=== PATIENT | female | born 1945 | race Caucasian/White ===

== ENCOUNTER → 2016-10-12 | Outpatient (CLI) | payer OTHER ==
--- NOTE | 2016-10-12 12:39 | MAMMOGRAPHY REPORT ---
BILATERAL DIGITAL SCREENING MAMMOGRAM WITH CAD: 10/12/2016 TECHNIQUE: Current study was also evaluated with a Computer Aided Detection (CAD) system. Bilatera l CC and MLO views were obtained. COMPARISON: Comparison is made to exams dated: 11/26/2013 mammogram, 06/29/2011 mammogram, 04/06/2010 mammogram - [facility], and 03/24/2009. BREAST COMPOSITION: There are scattered areas of fibroglandular density in both breasts. FINDINGS: No suspicious masses, calcifications, or areas of architectural distortion are noted in e ither breast. There has been no significant interval change compared to prior exams. Bilateral bayron gn-appearing calcifications are again noted. IMPRESSION: ACR BI-RADS CATEGORY 2: BENIGN There is no mammographic evidence of malignancy. A 1 year screening mammogram is recommended. The p atient will receive written notification of the results. Approximately 10% of breast cancers are not detected with mammography. A negative mammographic repor t should not delay biopsy if a clinically suggestive mass is present. Vanesas Mayfield M.D. ah/:10/12/2016 12:21:27 Locator: Damaris WEAVER)(Ann-Marie), [facility] letter sent: Normal 1/2 BI-RADS Code: ACR BI-RADS Category 2: Benign
== END | disposition home or self-care (01) ==
LOC: C.MAMM 09:48
PROVIDERS: ATTEND Family Medicine
DX: Z12.31 Encounter for screening mammogram for malignant neoplasm of breast (principal)

== ENCOUNTER → 2017-10-23 | Outpatient (CLI) | payer OTHER | END | disposition home or self-care (01) | LOC: C.LABMFLN 11:43 | PROVIDERS: ATTEND Family Medicine | DX: E87.6 Hypokalemia (principal) ==

== ENCOUNTER 2020-12-28 06:47 | Observation (INO) ==
--- NOTE | 2020-05-26 09:32 | Anesthesiology Consultation ---
Date of Service May 26, 2020 Assessment & Plan (1) Encounter for pre-operative examination: - Per assessment on 05/19: Travel screen negative. No known COVID-19 positive contacts or current COVID-19 related symptoms. Surgeon arranging preop COVID t esting (scheduled 05/27 [facility]). Awaiting results. - PCP ([facility]): Per PCP workload note from 03/19/20, PCP is aware of upcoming orthopedic surgery. Reviewed preop EKG and recommended that patient be seen by cardiology prior to surgery for clearance. This was done 05/11/20. Surgery was originally scheduled for 04/2020 but it was canceled given A1C greater than 10%. She has been working closely with PCP and has had insulin dosing increased. Repeat A1C done 05/20/20 with A1C less than 10% (9.6%). Per Lauryn at Dr. Sood's office, most recent hgba1c reviewed and okay from his perspective to proceed with surgery as scheduled. - Cardiology office visit: 05/11/20: " She had a preop EKG that demonstrated atrial bigeminy. She is asymptomatic.. At this point time she has no cardiac issues.. Her EKG that demonstrates atrial bigeminy is a benign finding. From a cardiac standpoint I see no cardiac contraindication for her having orthopedic surgery." - Check BSG AM DOS Chart Review Chart Review: Acceptable Risk for Surgery and Patient NOT seen in Pre Admission Testing History Surgery Operation Date: 06/02/20 07:00 Proposed Procedures p Left Total Hip Replacement - Chin Sood MD Operation Date: 06/02/20 07:00 Proposed Procedures p Left Total Hip Arthroplasty - Chin Sood MD Height/Weight Height: 5 ft 2 in Weight: 86.636 kg Allergies Allergy/AdvReac Type Severity Reaction Status Date / Time No Known Drug Allergies Allergy Verified 05/19/20 16:42 Medications Home Medications Medication Instructions Recorded Confirmed Last Taken blood sugar diagnostic #400 ea 09/30/19 03/03/20 Unknown glimepiride 4 mg tablet 4 mg PO BID #180 tab 12/06/19 05/19/20 Unknown hydroxyzine HCl 10 mg tablet 10 mg PO HS PRN #30 tab 02/18/20 05/19/20 Unknown pen needle, diabetic 31 gauge x #100 ea 02/18/20 03/03/20 Unknown 12/20" 3-in-1 Commode #1 ea 02/27/20 03/03/20 Unknown Wheeled Walker #1 ea 02/27/20 03/03/20 Unknown atorvastatin 80 mg PO HS 03/02/20 05/19/20 Unknown losartan 100 mg PO QAM 03/02/20 05/19/20 Unknown meloxicam [Mobic] 7.5 mg PO QAM 03/02/20 05/19/20 Unknown paroxetine HCl 10 mg PO QAM 03/02/20 05/19/20 Unknown hydrocortisone [Anusol-HC] 0.5 applic DC BID PRN 05/19/20 05/19/20 Unknown insulin glargine [Lantus Solostar 47 units SQ HS 05/19/20 05/19/20 Unknown U-100 Insulin] nystatin 1 applic TOPICAL HS PRN 05/19/20 05/19/20 Unknown pioglitazone [Actos] 30 mg PO QAM 05/19/20 05/19/20 Unknown Past Medical History Medical History Anxiety Depression Diabetes mellitus, type 2 IDDM HTN (hypertension) Hyperlipidemia Obesity Osteoarthritis Right patella fracture Past Family History Family History Family/Other No problems noted. Father Myocardial infarction Other No family history of adverse response to anesthesia Denies family history of Ovarian cancer Prostate cancer Breast cancer Lung cancer Colorectal cancer Stroke Past Surgical History Surgical History History of bilateral tubal ligation History of open reduction and internal fixation (ORIF) procedure Right Elbow History of tonsillectomy and adenoidectomy Social History Smoking Status: Never smoker Do You Dip or Chew Tobacco: No Hx Alcohol Use: No Hx Substance Use: No substance use type: does not use Testing Laboratory Results 05/05/20 WBC 4.11 (labs ordered/reviewed by PCP) H/H 12.9/40.8 PLATELETS 250 SODIUM 142 POTASSIUM 5.0 CHLORIDE 102 CO2 24 BUN 22 CREATININE 0.9 GLUCOSE 142 PT 12.2 PTT 24.6 INR 0.9 05/25/20 HGBA1C 9.6% (surgeon's office aware) Electrocardiogram Date: 08/04/20 SR with PACs in pattern of bigeminy. Otherwise "normal" ECG. Chest X-Ray Date: 03/10/20 The heart is borderline enlarged. There is no failure. There is no lobar consolidation. There are no pleural effusions. IMPRESSION: No active disease in the chest.
--- NOTE | 2020-10-14 13:43 | PAT Medication Instructions ---
Medication Instructions Date of Service October 14, 2020 Home Medications Medication Instructions Recorded glimepiride 4 mg tablet 4 mg PO BID #180 tab 12/06/19 hydroxyzine HCl 10 mg tablet 10 mg PO HS PRN #30 tab 02/18/20 pen needle, diabetic 31 gauge x #100 ea 02/18/2012/20" 3-in-1 Commode #1 ea 02/27/20 Wheeled Walker #1 ea 02/27/20 losartan 100 mg tablet 100 mg PO QAM #90 tab 06/01/20 paroxetine HCl 10 mg tablet 10 mg PO QAM #30 tab 08/19/20 blood sugar diagnostic #400 ea 10/07/20 insulin glargine 100 unit/mL (3 50 unit SQ HS #15 ml 10/12/20 mL) subcutaneous pen meloxicam 7.5 mg tablet 7.5 mg PO QAM #90 tab 10/12/20 glimepiride 4 mg tablet 4 mg PO BID hydroxyzine HCl 10 mg tablet 10 mg PO HS PRN atorvastatin 80 mg PO HS hydrocortisone [Anusol-HC] 0.5 applic NE BID PRN nystatin 1 applic TOPICAL HS PRN pioglitazone [Actos] 30 mg PO QAM losartan 100 mg tablet 100 mg PO QAM paroxetine HCl 10 mg tablet 10 mg PO QAM insulin glargine 100 unit/mL (3 mL) subcutaneous pen 50 unit SQ HS meloxicam 7.5 mg tablet 7.5 mg PO QAM ASK your surgeon for instructions meloxicam 7.5 mg tablet 7.5 mg PO QAM DO NOT take the morning of surgery glimepiride 4 mg tablet 4 mg PO BID pioglitazone [Actos] 30 mg PO QAM losartan 100 mg tablet 100 mg PO QAM Take morning of surgery With a small sip of water, OTHERWISE NOTHING TO EAT OR DRINK AFTER MIDNIGHT: paroxetine HCl 10 mg tablet 10 mg PO QAM Take evening before surgery glimepiride 4 mg tablet 4 mg PO BID hydroxyzine HCl 10 mg tablet 10 mg PO HS PRN (if needed) atorvastatin 80 mg PO HS hydrocortisone [Anusol-HC] 0.5 applic NE BID PRN (if needed) nystatin 1 applic TOPICAL HS PRN (if needed) insulin glargine 100 unit/mL (3 mL) subcutaneous pen 50 unit SQ HS Other Notes If you have any questions please call us at [phone] or [phone] or [phone] or [phone]
--- NOTE | 2020-10-19 11:04 | Anesthesiology Consultation ---
Date of Service October 19, 2020 Assessment & Plan (1) Encounter for pre-operative examination: Case was originally to be done last fall, but was canceled multiple times until now (first for uncontrolled DM (A1C 10.8%), then due to COVID pandemic restricting elective surgeries). COVID Status: As of 10/19 assessment, patient denies travel to endemic area, known exposure/sick contacts, or symptoms of COVID19. Patient instructed that they and their household members must follow strict social distancing guidelines, wear a mask in public and avoid travel/events/gatherings for 14 days prior to surgery. Preoperative COVID19 testing to be completed prior to surgery per surgeon's arrangements (11/13). Patient made aware to self-isolate as much as possible between COVID testing and surgery. Cardiology clearance 05/11/2020: "At this point in time she has no cardiac issues. She has never had a myocardial infarction and is asymptomatic from a ca rdiac standpoint. Her EKG did demonstrate atrial bigeminy is a benign finding. From a cardiac standpoint I see no contraindication for her having orthopedic surgery." K+ mildly elevated at 5.2 on pre-op labs. She is on ARB, which will be held DOS. Recheck AM DOS at [facility] discretion. BSG AM DOS. Chart Review Chart Review: Acceptable Risk for Surgery and Patient seen in Pre Admission Testing Teaching & Discussion Instructed NPO after midnight before surgery, except medications with 15 cc of water. Medication instructions provided according to the PAT guidelines. History Surgery Operation Date: 06/02/20 07:00 Proposed Procedures p Left Total Hip Replacement - Chin Sood MD Operation Date: 11/18/20 07:15 Proposed Procedures p Left Total Hip Arthroplasty - Chin Sood MD Height/Weight Height: 5 ft 2 in Weight: 86.636 kg Allergies Allergy/AdvReac Type Severity Reaction Status Date / Time No Known Drug Allergies Allergy Unknown Verified 10/12/20 11:37 Medications Home Medications Medication Instructions Recorded Confirmed Last Taken glimepiride 4 mg tablet 4 mg PO BID #180 tab 12/06/19 10/15/20 Unknown hydroxyzine HCl 10 mg tablet 10 mg PO HS PRN #30 tab 02/18/20 10/15/20 Unknown pen needle, diabetic 31 gauge x #100 ea 02/18/20 10/12/20 Unknown 5/16" 3-in-1 Commode #1 ea 02/27/20 03/03/20 Unknown Wheeled Walker #1 ea 02/27/20 10/12/20 Unknown atorvastatin 80 mg PO HS 03/02/20 10/15/20 Unknown hydrocortisone [Anusol-HC] 0.5 applic [place] BID PRN 05/19/20 10/15/20 Unknown nystatin 1 applic TOPICAL HS PRN 05/19/20 10/15/20 Unknown pioglitazone [Actos] 30 mg PO QAM 05/19/20 10/15/20 Unknown losartan 100 mg tablet 100 mg PO QAM #90 tab 06/01/20 10/15/20 Unknown paroxetine HCl 10 mg tablet 10 mg PO QAM #30 tab 08/19/20 10/15/20 Unknown blood sugar diagnostic #400 ea 10/07/20 10/12/20 Unknown insulin glargine 100 unit/mL (3 50 unit SQ HS #15 ml 10/12/20 10/15/20 Unknown mL) subcutaneous pen meloxicam 7.5 mg tablet 7.5 mg PO QAM #90 tab 10/12/20 10/15/20 Unknown Past Medical History Medical History (Updated 10/19/20 @ 15:42 by Arsen Noble) Anxiety Depression Diabetes mellitus, type 2 IDDM. Uncontrolled, A1C 9.6%. Surgeon's office aware. GERD (gastroesophageal reflux disease) UNDER CONTROL HTN (hypertension) Hyperlipidemia Obesity Osteoarthritis Right elbow pain Right patella fracture 04/02/20, healed. Exercise / Class Metabolic Activity III < 4 Walking/Shop/Light housework (Denies CP or SOB with ambulation, using cane for stability, limted by hip pain) Past Family History Family History Family/Other No problems noted. Father Myocardial infarction Sister No family history of adverse response to anesthesia SLOW TO WAKE UP Grandmother (Paternal) Family history of diabetes mellitus Denies family history of Ovarian cancer Prostate cancer Breast cancer Lung cancer Colorectal cancer Stroke Past Surgical History Surgical History History of bilateral tubal ligation History of esophagogastroduodenoscopy (EGD) History of open reduction and internal fixation (ORIF) procedure Right Elbow History of tonsillectomy and adenoidectomy Past Anesthesia History No Hx of Anesthesia Complications and No Family Hx of Anesthesia Complications History of PONV No Hx of PONV and No Hx of Motion Sickness Social History Smoking Status: Never smoker Do You Dip or Chew Tobacco: No Hx Alcohol Use: No Hx Substance Use: No substance use type: does not use Review of Systems Pt denies any recent chest pain, shortness of breath, palpitations, cough, fever, URI, or uncontrolled acid reflux (only flares with too much coffee). Physical Exam Vital Signs BP: 101/65 P: 81bpm SPO2: 95% RA T: 97.9 F R: 16 ENMT Mouth: + dentures (full set) Thyromental Distance: < 3.5 Finger Breadths (3) Mallampati Class: II Neck + thick neck and + facial hair; neck extension not limited Respiratory normal respiratory effort, lungs clear to auscultation Auscultation: + diminished lung sounds (B/L) Cardiovascular RRR, no murmur, no edema Vessels: no carotid bruit Testing Laboratory Results 10/19/20 11:21 10/19/20 11:21 PT 10.1 Seconds (9.0-12.0) 10/19/20 11: INR 1.0 (0.9-1.1) 10/19/20 11:21 APTT 23.4 Seconds (21.0-31.0) 10/19/20 11:21 Hemoglobin A1c 9.6 % (4.5-5.6) H 10/19/20 11:21 Blood Type A Positive 10/19/20 11:21 Antibody Screen NEGATIVE 10/19/20 11:21 Surgeon's office flagged re: elevated A1C and glucose. Electrocardiogram Date: 03/10/20 SR with PACs in pattern of bigeminy. Otherwise "normal" ECG. *Patient subsequently seen by cardiology for pre-op clearance. "Benign finding." Chest X-Ray Date: 03/10/20 The heart is borderline enlarged. There is no failure. There is no lobar consolidation. There are no pleural effusions. IMPRESSION: No active disease in the chest.
[2020-10-19 12:14] LABS: Basophils # (auto) 0.02 K/uL (0-0.2); Basophils % (auto) 0.4 %; Eosinophils # (auto) 0.09 K/uL (0-0.5); Eosinophils % (auto) 1.9 %; Hematocrit (blood only) 38.7 % (37-47); Hemoglobin 12.7 g/dL (12.0-16.0); Immature Granulocytes # (auto) 0.02 K/uL (0.00-0.02); Immature Granulocytes % (auto) 0.4 %; Lymphocytes % (auto) 25.2 %; Mean Corpuscular Hemoglobin 32.4 pg (25-34); Mean Corpuscular Hgb Conc 32.8 g/dL (32-36); Mean Corpuscular Volume 98.7 fL (80-100); Mean Platelet Volume 9.4 fL (7.4-10.4); Monocytes # (auto) 0.42 K/uL (0.11-0.59); Monocytes % (auto) 8.8 %; Neutrophils # (auto) 3.02 K/uL (1.4-6.5); Neutrophils % (auto) 63.3 %; Platelet Count 247 K/uL (130-400); RDW Coefficient of Variation 13.8 % (11.5-14.5); RDW Standard Deviation 50.1 fL (36.4-46.3); Red Blood Count 3.92 M/uL (4.2-5.4); White Blood Count 4.77 K/uL (4.8-10.8)
[2020-10-19 12:28] LABS: Partial Thromboplastin Ratio 0.9; Partial Thromboplastin Time 23.4 Seconds (21.0-31.0); Prothrombin Time 10.1 Seconds (9.0-12.0)
[2020-10-19 13:13] LABS: Estimated Average Glucose 229 mg/dl; Hemoglobin A1C 9.6 % (4.5-5.6)
[2020-10-19 14:09] LABS: BUN Creatinine Ratio 22.8 (10-20); Calcium 9.1 mg/dl (8.5-10.1); Creatinine Clr Calc Pharmacy 52.2 ml/min; Est GFR (African American) 66.7; Est GFR (Non-African American) 57.5; Potassium 5.2 mmol/L (3.5-5.1)
--- NOTE | 2020-12-24 23:32 | History and Physical Report ---
DATE OF ADMISSION: 12/28/2020 CHIEF COMPLAINT: Left hip and leg pain. HISTORY OF PRESENT ILLNESS: The patient is a 75-year-old female who presents for surgical treatment of her left hip. She has got a 7-year history of increasing left hip pain and discomfort, it has become more bothersome over time. She has been through extensive conservative treatment, which became less successful over time. She has been scheduled for hip replacement surgery on several occasions. She initially fell shortly before surgery was planned and then broke her kneecap, she has now recovered from this, and then her surgery was canceled due to her elevated hemoglobin A1c. She has been working with her medical doctor trying to get this down. It has improved some, but still pretty high. They feel like she has been medically optimized. She describes groin pain, thigh pain. She limps more as the day goes on. She would like to have her hip fixed. PAST MEDICAL HISTORY: 1. Hypertension. 2. Elevated cholesterol. 3. Sleep apnea. 4. Anxiety. 5. Poorly controlled diabetes. 6. Back pain/sciatica. PAST SURGICAL HISTORY: Include left elbow surgery. ALLERGIES: None. CURRENT MEDICATIONS: Include, 1. Atorvastatin. 2. Vitamin D3. 3. Nystatin. 4. Hydrocortisone topical cream. 5. Insulin. 6. Meloxicam. 7. Simvastatin. 8. Mupirocin cream. 9. Clozapine. 10. Pioglitazone. 11. Triamcinolone cream. SOCIAL HISTORY: A 75-year-old female patient. She is . She does not smoke. No alcohol intake. FAMILY HISTORY: Noncontributory. REVIEW OF SYSTEMS: Elevated hemoglobin A1C. She is working on improving this. Medical doctor feels like she is about as good as she can get. She has chronic back pain. No chest pain, no shortness of breath. No cardiac symptoms. No history of DVT or PE. PHYSICAL EXAMINATION: GENERAL: Shows a pleasant elderly female. She looks to be in reasonably good health. HEENT: Benign. NECK: Supple, no lymphadenopathy. LUNGS: Clear to auscultation. HEART: Has a regular rate and rhythm. ABDOMEN: Soft, nontender, nondistended. EXTREMITIES: Grossly neurovascularly intact except as follows: Examination of the left leg reveals the patient walks with the use of a cane. Leg lengths appear pretty equal. She limps on the left side. She has got a very stiff hip with a very limited internal rotation to neutral at best. Minimal knee effusion. She is neurologically intact. IMAGING DATA: X-rays of the left hip were reviewed from previously. It shows advanced left hip DJD. X-rays have progressed to more progressed and severe arthritis, specifically the acetabulum as well as femoral head. X-rays of the left knee show pretty well preserved knee joint space. Some [id number] chondrocalcinosis. Mild medial compartment degenerative joint disease. ASSESSMENT: A 75-year-old white female with multiple medical comorbidities, most significantly pretty poorly controlled diabetes with advanced left hip arthritis. She would try to medically optimize her situation including her diabetes and she would like to have her right knee fixed. The patellar fracture on the right side is healed. PLAN: We will take her to the operating room and do a left total hip replacement. The risks and benefits of this procedure were explained to the patient including, but not limited to, DVT, PE, , infection, neurological injury, vascular injury, bleeding problem, pain, limited range of motion, stiffness, failure to relieve symptoms, incomplete relief of symptoms, need for further surgery in the future, fracture, leg length inequality, nerve palsy, etc. The patient understands and desires to proceed. Informed consent was obtained. We will use insulin sliding scale coverage in the hospital. She is planning to be discharged home using [facility]. She is fully aware with her poorly controlled diabetes she is at increased risk for infection particularly, but she has been optimized. MTDD
[~2020-12-28 06:47] MED LIST: BUPIVACAINE 0.5 % 5 MG/1 ML PF 10ML VIAL ONE; FAMOTIDINE 20 MG TAB PO SCH; GABAPENTIN 300 MG CAP PO SCH; LR 500ML BOLUS, THEN 15ML/HR IV SCH; LR 60ML/HR IV SCH; METOCLOPRAMIDE HCL 10 MG TABLET PO SCH; Scopolamine 1 MG TDSY TD SCH; Scopolamine CHECK PATCH PLACEMENT SCH; TRANEXAMIC ACID 1,000 MG **IV Pre-op IV SCH; ceFAZolin 2000MG 2,000 MG/15 ML SYR IV SCH
--- NOTE | 2020-12-28 06:56 | History & Physical Bridge Note ---
Date of Service December 28, 2020 History & Physical Bridge Note I have examined the patient, reviewed the History & Physical and in the interval since the performance of the History & Physical I have noted the following changes of clinical significance: no changes noted
[2020-12-28] MEDS ORDERED: MoRPHine SULFATE PF 1 MG/ML 10 ML AMP/VIAL ONE ×2 (08:08→09:45)
[2020-12-28] MEDS ORDERED: MIDAZOLAM HCL 1 MG/ML 2ML VIAL ONE (08:08)
[2020-12-28] MEDS ORDERED: MEPERIDINE HCL 25 MG/ML CARP/VIAL IV PRN (09:04)
[2020-12-28] MEDS ORDERED: ONDANSETRON INJ 2 MG/ML 2 ML VIAL IV PRN (09:04)
[2020-12-28] MEDS ORDERED: diphenhydrAMINE 50 MG/ML VIAL IV PRN (09:04)
[2020-12-28] MEDS ORDERED: LACTATED RINGER'S 500 ML IV PRN (09:04)
[2020-12-28] MEDS ORDERED: PROMETHAZINE HCL 6.25 MG in SODIUM CHLORIDE 0.9% 50 ML IV PRN (09:04)
[2020-12-28] MEDS ORDERED: NALOXONE HCL 0.4 MG/1 ML VIAL/CARP IV PRN ×2 (09:04→13:14)
[2020-12-28] MEDS ORDERED: ePHEDrine sulfate 50 MG/ML AMP IV PRN (09:04)
[2020-12-28] MEDS ORDERED: KETOROLAC 30 MG/ML VIAL IV PRN (09:04)
[2020-12-28] MEDS ORDERED: NALOXONE HCL 1 MG in SODIUM CHLORIDE 0.9% 1000ML 1,000 ML IV PRN (09:04)
[2020-12-28] MEDS ORDERED: NALOXONE HCL 0.08 MG in SYRINGE 1.8 ML IV PRN (09:04)
[2020-12-28] MEDS ORDERED: MoRPHine SULFATE PF 1 MG/ML 10 ML AMP/VIAL INT SPINAL ONE (09:04)
[2020-12-28] MEDS ORDERED: BUPIVACAINE/EPINEPHRINE 0.5% MPF 1:200,000 30 ML VIAL ONE (09:05)
[2020-12-28] MEDS ORDERED: SODIUM CHLORIDE 0.9% 1000ML 1,000 ML IV SCH (09:15)
[2020-12-28] MEDS ORDERED: DC INTRASPINAL MORPHINE SCH (09:15)
[2020-12-28] MEDS ORDERED: NO NARCOTICS OR SEDATIVES SCH (09:15)
[2020-12-28] MEDS ORDERED: LIDOCAINE 2% 2 ML VIAL/AMP(20MG/ML) INFIL ONE (10:01)
[2020-12-28] MEDS ORDERED: PROPOFOL IV EMULSION 10 MG/ML 20 ML VIAL IV ONE (10:01)
--- NOTE | 2020-12-28 11:22 | Operative Report ---
Post Operative Report Pre & Post Diagnosis Operation Date: 06/02/20 07:00 <No data on this case meets the specified criteria> Operation Date: 12/28/20 09:20 Pre-Op Diagnosis: Left Hip Advanced Degenerative Joint Disease Post-Op Diagnosis: Left Hip Advanced Degenerative Joint Disease I identified the patient and participated in the time-out.: Yes Procedure Operation Date: 06/02/20 07:00 <No data on this case meets the specified criteria> Operation Date: 12/28/20 09:20 Actual Procedures p Left Total Hip Arthroplasty--Cemented(Left) - Chin Sood MD Surgeon Chin Sood MD Undercover Agent SHERYL Figueroa Estimated Blood Loss 200 Findings Consistent with Post-Op Diagnosis Operative findings real advanced left hip DJD. She had grade 4 [id number] disease the femoral head and acetabulum. She had collapse of the femoral head with flattening of the femoral head. Moderate-sized joint effusion. Fluids 1300 cc Specimens Left femoral head sent for pathology. Anesthesia Type Spinal Complications none Disposition Accompanied Patient To Recovery: Yes Disposition: Recovery Room Indications Patient is 75-year-old female has had a several year history of increasing left lower extremity hip and knee pain and discomfort and inability to get around. Is gotten significant worse over the past year. X-rays show advanced left hip DJD. She elected proceed with left total hip placement. Patient's been rescheduled multiple times due to various issues including a fall and a right patella fracture as well as the Covid epidemic. She is now desiring more than ever to have this hip replaced as she has been pretty miserable lately. Description of Procedure Operative implants consist of: 1. Biomet G7 size 54 mm acetabular shell. 2. 6.5 cancellous acetabular screws 135 mm length and 1 of 30 mm length. 3. [place] hole development vice president. 4. Highly cross-linked polyethylene liner with a 54 mm outer diameter, 36 mm inner diameter. 5. DePuy cemented [place] size 4 standard offset femoral stem. 6. +5/36 mm metal articular ball. The patient was taken to the operating, identified, placed on the operating table supine position but all contact areas were properly padded IV antibiotics 5 by anesthesia team. A spinal anesthetic had been implemented holding area. Berumen catheter was placed in sterile fashion. Patient then placed in the right lateral decubitus position. An axillary roll was placed. A Stulberg hip positioner was used for positioning. The left hip and leg were then prepped and draped in usual sterile fashion. Posterior lateral posterior left hip was then performed to a curvilinear incision centered over the greater trochanter. Sharp dissection Through subcutaneous tissue down to the IT band gluteal fascia the IT band gluteal fascia incised longitudinally in line with skin incision. The underlying gr eater bursa was excised. The piriformis and external rotators and posterior capsule were then released from the posterior aspect hip joint as a single layer. Great care was taken throughout the procedure protect the sciatic nerve at all times. Hip was internally rotated and dislocated. Femoral neck osteotomy cut was made with Final Cut 15 mm above the lesser trochanter. Femoral head was removed and sent for pathology. The femur was retracted anteriorly. Attention drawn the acetabulum. The acetabular labrum was excised and the pulmonary fat was excised. Sequential reaming the acetabular was then performed begin with size 43 and progressing up to 53. I did reamed a little bit with a 54 reamer and then placed a 54 cup. This is placed in about 40 degrees lateral opening and 20 degrees of anteversion. Was fixed with two 6.5 cancellous acetabular screws. A trial liner was placed. Attention drawn the femur. The proximal femur was entered with a cookie-cutter followed by canal finder. Her bone was extremely cancellous and very soft. Therefore we elected to cement the stem. I broached begin the size well 1 and progressing up to a 4. Got good fit of 4. We then trialed the hip and the +5 articular ball seem to recreate soft tissue tension appropriately and was stable in full extension and external rotation and flexion to 90 degrees and internal rotation over a 50 degrees. Leg lengths seem equal. Offset seemed appropriate. We elect to place these implants. Nupathe all trial implants were removed. An apex hole development vice president was placed. Highly cross-linked polyethylene liner was placed. A DePuy [place] size 4 standard offset cemented stem was placed. We injected the canal with 2 packs of [place] G cement and then placed the stem. All extraneous cement was cameron alexandra. Once the cement hardened we placed a +5/36 mm metal articular ball. Hip was located once again found to be stable. Attention drawn toward closing. The wounds irrigated scopes also pulsatile lavage solution. I did inject locally with 60 cc of half percent Marcaine with epinephrine. Patient did receive 1 g tranexamic acid. The posterior capsule and external rotators were then repaired through drill holes in the posterior trochanter with #2 Tycron suture. The IT band gluteal fascia then closed in 1 PDS suture running fashion for subcutaneous tissue then closed 2 layers with a deep layer #1 Vicryl suture subcutaneous tissues with 2-0 Dexon suture in a buried interrupted fashion the skin was closed skin omer. Leg was then cleaned dried a sterile dressing both Xeroform, 4 x 4's, ABD pad, foam tape were applied. The patient then transferred to the recovery in stable condition. Patient tolerated procedure well and there were no complications. Albert Figueroa, my physician promotional advertising assistant, was present for the entire procedure. His assistance was essential and required for appropriate patient positioning, prepping and draping, surgical exposure, performing the technical details of the operation, placement the implants, closure of the wound, and placement of the sterile bandage. I attest to the content of the Intraoperative Record and any orders documented therein. Any exceptions are noted below.
--- NOTE | 2020-12-28 12:50 | XRay Report ---
AP PELVIS, CROSSTABLE LATERAL LEFT HIP History: Left total hip arthroplasty. Degenerative arthritis. Postop. FINDINGS: The patient is status post a left total hip arthroplasty. The hardware is intact. No fractu re or dislocation. Skin omer are in place. IMPRESSION: Left total hip arthroplasty. No evidence for hardware complication. ACT 112: Negative or not required by law. Electronically signed by: Howard Richard M.D. 12/28/2020 12:49 PM
[2020-12-28] MEDS ORDERED: DEXTROSE 50% 50 ML SYRINGE IV PRN (13:14)
[2020-12-28] MEDS ORDERED: HYDROCORTISONE HC 2.5% CRM 30GM TUBE EXT PRN (13:14)
[2020-12-28] MEDS ORDERED: bisacodyL 10 MG SUPP PR PRN (13:14)
[2020-12-28] MEDS ORDERED: GLUCOSE 40% GEL 15 GM TUBE PO PRN (13:14)
[2020-12-28] MEDS ORDERED: ALUMINUM/MAGNESIUM SUSP 30 ML UDC PO PRN (13:14)
[2020-12-28] MEDS ORDERED: NYSTATIN CR 15 GM TUBE EXT PRN (13:14)
[2020-12-28] MEDS ORDERED: CARBOHYDRATES FOR HYPOGLYCEMIA PO PRN (13:14)
[2020-12-28] MEDS ORDERED: GLUCAGON FOR INJ 1 MG VIAL SQ PRN (13:14)
[2020-12-28] MEDS ORDERED: MAGNESIUM HYDROXIDE SUSP 30 ML UDC PO PRN (13:14)
[2020-12-28] MEDS ORDERED: GLUCOSE 10 TABS/TUBE PO PRN (13:14)
--- NOTE | 2020-12-28 13:17 | Anesthesiology Progress Note ---
Date of Service December 28, 2020 Anesthesia Post Procedure Vital Signs Vital Signs: Temp Pulse Pulse Resp BP Pulse Ox 12/28/20 12:45 63 16 119/65 97 12/28/20 12:30 66 15 127/59 L 97 12/28/20 12:15 71 16 131/67 97 12/28/20 12:10 36.4 C L 64 18 128/63 97 12/28/20 12:00 59 L 19 112/59 L 97 12/28/20 11:50 64 12 134/64 97 12/28/20 11:40 70 14 136/64 96 12/28/20 11:30 71 14 125/61 99 12/28/20 11:20 72 14 126/60 98 12/28/20 11:10 36.1 C L 76 17 134/61 98 12/28/20 11:00 36.1 C L 75 16 122/57 L 98 12/28/20 07:30 36.7 C 78 20 137/64 96 Transfer of Care Handoff Completed per policy Notes Mental Status: alert / awake / arousable Patient Amnestic to Procedure: Yes Nausea / Vomiting: adequately controlled Pain: adequately controlled Airway Patency, RR, SpO2: stable & adequate BP & HR: stable & adequate Hydration State: stable & adequate Neuraxial Anesthesia: was administered and sensory block is resolving Anesthetic Complications: no major complications apparent
[2020-12-28] MEDS ORDERED: PHARMACY GLYCEMIC MGMT CONSULT PRN (14:21)
--- NOTE | 2020-12-28 14:39 | Pharmacy Report ---
Pharmacy Glycemic Short Note 2 - Date of Service December 28, 2020 - Glycemic Short BSG Results (Last 24 hours): 12/28/20 12/28/20 12/28/20 07:27 11:02 13:12 POC Glucose 168 H 164 H 120 H OUTPATIENT ANTIDIABETIC REGIMEN: * Lantus 30 units HS (8 units on 12/27 PM) * Glimepiride * Pioglitazone * HbA1c 9.6% on 10/19/20 ASSESSMENT: * 75 yo F with T2DM, POD 0 s/p L ASHLYN * Will resume home Lantus dose and give now as lower dose was administered yesterday * Will start weight-based moderate stress Novolog PLAN FOR INPATIENT GLYCEMIC CONTROL: * Hold outpatient oral diabetes medications * Basal insulin * Lantus 30 units SQ x1 now * Bolus insulin * NovoLog per scale ACHS or Q6hrs while NPO * Goal Range: Low 110 mg/dL - High 140 mg/dL * Correction Factor: 30 mg/dL/unit * Nutritional / Prandial insulin per carb ratio of 1 unit per 9 grams CHO consumed
[2020-12-28] MEDS: ACETAMINOPHEN 500 MG TAB PO SCH ×2 (14:41→21:09)
[2020-12-28] MEDS: SODIUM CHLORIDE 0.9% 1000ML 1,000 ML IV SCH (14:41)
[2020-12-28] MEDS ORDERED: INSULIN GLARGINE SOLOSTAR 100 UNITS/ML 3 ML PEN SC ONE (14:45)
[2020-12-28] MEDS: Scopolamine CHECK PATCH PLACEMENT SCH (16:50)
[2020-12-28] MEDS ORDERED: TRANEXAMIC ACID / 0.7% NACL 1,000 MG/100 ML BAG IV SCH (17:12)
[2020-12-28] MEDS: ASCORBIC ACID 500 MG TAB PO SCH (17:31)
[2020-12-28] MEDS: FERROUS GLUCONATE 324 MG TAB PO SCH (17:31)
[2020-12-28] MEDS: KETOROLAC TROMETHAMINE 15 MG/ML VIAL IV SCH (17:38)
[2020-12-28] MEDS: ceFAZolin 2000MG 2,000 MG/15 ML SYR IV SCH (18:22)
[2020-12-28] MEDS: INSULIN ASPART 100 UNITS/ML 3 ML PEN SC SCH ×2 (18:22→21:09)
[2020-12-28] MEDS: ATORVASTATIN 40 MG TAB PO SCH (20:55)
[2020-12-28] MEDS: SENNA 8.6 MG TAB PO SCH (20:55)
[2020-12-28] MEDS: DOCUSATE SODIUM 100 MG CAP PO SCH (20:55)
[2020-12-28] MEDS: ASPIRIN 81 MG ECTAB PO SCH (20:56)
[2020-12-28] MEDS ORDERED: GLIMEPIRIDE 2 MG TAB PO SCH (21:00)
[2020-12-28] MEDS ORDERED: INSULIN GLARGINE SOLOSTAR 100 UNITS/ML 3 ML PEN SQ SCH (21:00)
[2020-12-29] MEDS: Scopolamine CHECK PATCH PLACEMENT SCH ×2 (00:42→07:52)
[2020-12-29] MEDS: KETOROLAC TROMETHAMINE 15 MG/ML VIAL IV SCH ×5 (00:42→23:08)
[2020-12-29] MEDS: SODIUM CHLORIDE 0.9% 1000ML 1,000 ML IV SCH (00:50)
[2020-12-29] MEDS: ceFAZolin 2000MG 2,000 MG/15 ML SYR IV SCH (01:08)
[2020-12-29] MEDS ORDERED: INSULIN ASPART 100 UNITS/ML 3 ML PEN SC ONE (02:00)
[2020-12-29] MEDS ORDERED: METOCLOPRAMIDE HCL INJ 5 MG/ML 2 ML VIAL IV PRN (03:08)
[2020-12-29] MEDS ORDERED: ONDANSETRON INJ 2 MG/ML 2 ML VIAL IV PRN (03:08)
[2020-12-29] MEDS ORDERED: HYDROmorphone INJ 0.5 MG/0.5 ML SYR IV PRN (03:08)
[2020-12-29] MEDS ORDERED: hydrOXYzine HCl 10 MG TAB PO PRN (03:08)
[2020-12-29] MEDS ORDERED: traMADol HCL 50 MG TABLET PO PRN (03:08)
[2020-12-29] MEDS: ACETAMINOPHEN 500 MG TAB PO SCH ×3 (05:34→20:16)
[2020-12-29 06:15] LABS: Basophils # (auto) 0.01 K/uL (0-0.2); Basophils % (auto) 0.2 %; Eosinophils # (auto) 0.09 K/uL (0-0.5); Eosinophils % (auto) 1.8 %; Hematocrit (blood only) 33.2 % (37-47); Hemoglobin 10.7 g/dL (12.0-16.0); Immature Granulocytes # (auto) 0.01 K/uL (0.00-0.02); Immature Granulocytes % (auto) 0.2 %; Lymphocytes # (auto) 0.91 K/uL (1.2-3.4); Lymphocytes % (auto) 17.8 %; Mean Corpuscular Hemoglobin 32.5 pg (25-34); Mean Corpuscular Hgb Conc 32.2 g/dL (32-36); Mean Corpuscular Volume 100.9 fL (80-100); Mean Platelet Volume 8.4 fL (7.4-10.4); Monocytes # (auto) 0.71 K/uL (0.11-0.59); Monocytes % (auto) 13.9 %; Neutrophils # (auto) 3.39 K/uL (1.4-6.5); Neutrophils % (auto) 66.1 %; Platelet Count 182 K/uL (130-400); RDW Standard Deviation 51.7 fL (36.4-46.3); Red Blood Count 3.29 M/uL (4.2-5.4); White Blood Count 5.12 K/uL (4.8-10.8)
[2020-12-29 06:53] LABS: Calcium 8.3 mg/dl (8.5-10.1); Creatinine Clr Calc Pharmacy 54.7 ml/min; Potassium 4.4 mmol/L (3.5-5.1)
[2020-12-29] MEDS: ASPIRIN 81 MG ECTAB PO SCH ×2 (09:02→20:16)
[2020-12-29] MEDS: LOSARTAN POTASSIUM 50 MG TAB PO SCH (09:02)
[2020-12-29] MEDS: MULTIVITAMIN TAB PO SCH (09:02)
[2020-12-29] MEDS: PARoxetine HCL 10 MG TAB PO SCH (09:02)
[2020-12-29] MEDS: DOCUSATE SODIUM 100 MG CAP PO SCH ×2 (09:03→20:15)
[2020-12-29] MEDS: FERROUS GLUCONATE 324 MG TAB PO SCH ×2 (09:03→17:44)
[2020-12-29] MEDS: INSULIN GLARGINE SOLOSTAR 100 UNITS/ML 3 ML PEN SC SCH ×2 (09:03→20:23)
[2020-12-29] MEDS: ASCORBIC ACID 500 MG TAB PO SCH ×2 (09:03→17:44)
[2020-12-29] MEDS: INSULIN ASPART 100 UNITS/ML 3 ML PEN SC SCH ×4 (09:04→20:25)
--- NOTE | 2020-12-29 09:24 | Pharmacy Report ---
Pharmacy Glycemic Short Note 2 - Date of Service December 29, 2020 - Glycemic Short BSG Results (Last 24 hours): 12/28/20 12/28/20 12/28/20 11:02 13:12 16:58 Glucose POC Glucose 164 H 120 H 130 H 12/28/20 12/29/20 12/29/20 20:52 06:02 08:05 Glucose 175 H POC Glucose 145 H 198 H OUTPATIENT ANTIDIABETIC REGIMEN: * Lantus 30 units HS * Glimepiride * Pioglitazone * HbA1c 9.6% on 10/19/20 ASSESSMENT: 12/29: * Sue's postoperative BSGs were well controlled last evenin-145 mg/dL * Overnight check was not completed by RN. Patient received 3 units of Novolog for BSG of 130 mg/dL at dinner and this was documented under the 0200 accucheck. * Fasting significantly increased to 198 mg/dL * Given poor outpatient control and current fasting, will increase basal today and split it BID * Tightening Novolog secondary to increase in postprandial BSG last night as well as for stress induced hyperglycemia postoperatively 12/28: * 75 yo F with T2DM, POD 0 s/p L ASHLYN * Will resume home Lantus dose and give now as lower dose was administered yesterday * Will start weight-based moderate stress Novolog PLAN FOR INPATIENT GLYCEMIC CONTROL: * Hold outpatient oral diabetes medications * Basal insulin - increased * Lantus 15-20 units SC BID per BSG (see EMR for more information) * Bolus insulin - tightened * NovoLog per scale ACHS or Q6hrs while NPO * Goal Range: Low 110 mg/dL - High 140 mg/dL * Correction Factor: 25 mg/dL/unit * Nutritional / Prandial insulin per carb ratio of 1 unit per 8 grams CHO consumed PLAN FOR DISCHARGE: * HbA1c was 9.6% from October of 2020. Given patient's age and comorbidities, a reasonable HbA1c goal would be < 7.5%. * Patient will require adjustments to Lantus prior to discharge. Will await more data prior to dose recommendation. * Consider addition of: * Bolus insulin with each meal and at bedtime OR * GLP-1 receptor agonist (patient experienced headache and nausea with Ozempic so favor daily Victoza or weekly Trulicity)
--- NOTE | 2020-12-29 15:49 | Progress Notes ---
DATE: 12/29/2020 SUBJECTIVE: The patient is a 75-year-old female now postop day 1 from a left hybrid total hip arthroplasty. She is doing okay. Apparently, she has quite a bit confused this morning, but when I visited her today, she seems to be better. Still a little bit confused, but better. She knew who I was and denied any pain. Denies any chest pain or shortness of breath. Not feeling dizzy or lightheaded. OBJECTIVE: VITAL SIGNS: Temperature 36.9. Vital signs stable. GENERAL: Shows a pleasant elderly female. She does seem just slightly confused but responds appropriately to questions. LUNGS: Clear to auscultation. HEART: Has a regular rate and rhythm. ABDOMEN: Soft, nontender, nondistended. EXTREMITIES: Grossly neurovascularly intact except as follows. Examination of the left leg reveals the dressing to be clean, dry and intact. Leg lengths are equal. She can dorsiflex and plantarflex her foot appropriately. She is neurologically intact. LABORATORY DATA: Hemoglobin 10.7. Hematocrit 33.2. Electrolytes are stable. ASSESSMENT: A 75-year-old female postop day 1 from a left total hip replacement, doing okay. She has had some bouts with confusion. Seems a reasonable this afternoon when I visited her. PLAN: 1. DVT prophylaxis including thigh-high TEDs, SCDs, and aspirin twice a day. 2. PT/OT. She can weightbear as tolerated. Left total hip protocol. 3. Pain control. She seems to be doing okay pain humphreys. We are going to hold all narcotic pain medicines until the confusion is completely resolved. 4. Disposition, not comfortable sending her home at this point with her slight confusion. We will keep her until things improve. We will consider medicine consult if has persistent problems with confusion. She is eventually planning to be discharged to home with some home health.
--- NOTE | 2020-12-29 19:46 | Hospitalist Consultation ---
Date of Consultation December 29, 2020 Assessment & Plan (1) Delirium: Patient is a 75 year old female s/p L total hip replacement POD#1, medicine is consulted for concerns of confusion. Delirium -Multifactorial at this point in time including recovering post anesthesia, hospital stay, recent surgical procedure. -When speaking with patient she was easily redirectable at this time, though upon discussion with her the patient may fair better with those of male gender -Will attempt to have a male 1:1 in the room -Would continue holding narcotic medications at this time as it may exacerbate her symptoms in the long run -Would also hold Vistaril at this time -Would continue 1:1 and reorientation S/P L Total Hip Arthroplasty -Pain control as per Ortho otherwise, would hold narcotic as above -PT/OT as per surgical service HLD -Continue Atorvastatin Depression -Continue Paroxetine DM2 -Continue SSI -Continue Basal bolus BID Dispo: Med/Surg post op FEN: DM2 Diet DVT: Per surgical service Code: Full Thank you for allowing us to participate in the care of this patient. Will continue to follow. Supervising Physician Co-Signing Physician Notes Attending addendum: I have physically seen this patient, have supervised the medical residents activities, and agree with the H&P unless as otherwise noted. Assessment and Plan: Delirium- Multifactorial, with differential including postanesthesia, hospital stay, medication related, recent surgical procedure. Patient reportedly will do better with meals than females, arranging for 1-1 Hold narcotics Hold Vistaril Diabetes mellitus- Accu-Cheks before meals and at bedtime with NovoLog coverage per scale Other medications and orders as noted History of Present Illness Reason for Consultation: Confusion Attending Physician: Chin Sood MD History of Present Illness Patient is a 75 year old female with PMHx DM2, Anxiety, Depression, GERD, HTN, HLD, Osteoarthritis who presented to the hospital on 12/28/20 for a total L Hip Arthroplasty. Medicine is consulted at this time for continued and escalated confusion of the patient throughout the day. Discussed with nursing in regards to patient's status throughout the day and it was noted that patient had been confused and trying to get out of bed. She had been verbally and physically aggressive to staff. There was also a concern that a "pop" was heard when patient was trying to swing her legs to the side while trying to get out of bed. Upon my presentation to the patient's bed side she is laying in bed and appears mildly irritated. Initial conversation with her was difficult as patient seemed fairly guarded, but gradually opened up as we spoke. She noted that she felt as though "those ladies are trying to keep me in bed for no reason" and appeared to at this time have limited insight into the complexity of her recent procedure and necessity for rest and healing. Patient also went on multiple tangents during our discussion describing "bus routes" and "other travels as a child," however, was able to be reoriented to the conversation at hand in regards to her need for bed rest post surgery. The patient at this time denied having any chest pain, SOB, fever, chills, hip or leg pain, numbness, or tingling. 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 Allergies Allergy/AdvReac Type Severity Reaction Status Date / Time semaglutide [From Ozempic] Allergy Verified 12/28/20 07:39 Home Medications Medication Instructions Recorded Confirmed Type hydroxyzine HCl 10 mg tablet 10 mg PO HS PRN #30 tab 02/18/20 12/28/20 Rx pen needle, diabetic 31 gauge x #100 ea 02/18/20 11/18/20 Rx 5/16" 3-in-1 Commode #1 ea 02/27/20 11/18/20 Rx Wheeled Walker #1 ea 02/27/20 11/18/20 Rx atorvastatin 80 mg PO HS 03/02/20 12/28/20 History hydrocortisone [Anusol-HC] 0.5 applic NV BID PRN 05/19/20 12/28/20 History nystatin 1 applic TOPICAL HS PRN 05/19/20 12/28/20 History pioglitazone [Actos] 30 mg PO QAM 05/19/20 12/28/20 History losartan 100 mg tablet 100 mg PO QAM #90 tab 06/01/20 12/28/20 Rx blood sugar diagnostic #400 ea 10/07/20 11/18/20 Rx meloxicam 7.5 mg tablet 7.5 mg PO QAM #90 tab 10/12/20 12/28/20 Rx paroxetine HCl 10 mg tablet 10 mg PO QAM #30 tab 11/30/20 12/28/20 Rx glimepiride 4 mg tablet 4 mg PO BID #180 tab 12/22/20 12/28/20 Rx Lantus Solostar U-100 Insulin 30 unit SQ HS 12/28/20 12/28/20 History acetaminophen 1,000 mg PO Q8 30 Days #180 tab 12/30/20 Rx aspirin 81 mg PO BID 45 Days #90 tab 12/30/20 Rx tramadol 50 - 100 mg PO Q6H PRN #40 tab 12/30/20 Rx Patient History Medical History Anxiety Depression Diabetes mellitus, type 2 GERD (gastroesophageal reflux disease) HTN (hypertension) Hyperlipidemia Obesity Osteoarthritis Right elbow pain Right patella fracture Surgical History History of bilateral tubal ligation History of esophagogastroduodenoscopy (EGD) History of open reduction and internal fixation (ORIF) procedure History of tonsillectomy and adenoidectomy Family History Family/Other No problems noted. Father Myocardial infarction Sister No family history of adverse response to anesthesia Grandmother (Paternal) Family history of diabetes mellitus Denies family history of Ovarian cancer Prostate cancer Breast cancer Lung cancer Colorectal cancer Stroke Social History Smoking Status: Never smoker Second Hand Exposure: No; Hx Alcohol Use: No Hx Substance Use: No Preferred Language: Turkmen Communication Ability: Effective Visual Impairment: Limited Hearing Ability: Normal Skidway Man Required: No Beliefs That Will Affect Care: None marital status: Current Living Situation: Spouse current occupational status: retired Feels Safe at Home: Yes Childhood Exposure to Second-Hand Smoke: Yes Diet Comment: Diabetic diet caffeine: Yes (Coffee- 1 cup) during the past year weight has: remained stable Dental Care, Regularly: No Physical Activity Frequency: Daily Seatbelt Use: always Sunscreen Use: No Do you think of yourself as: straight/heterosexual Assistive Devices: Walker Review of Systems Review of Systems: All systems reviewed & are unremarkable except as noted in Subjective Physical Exam Constitutional: WD/WN, vitals as above healthy appearing Eyes: PERRL, conjunctivae normal, anicteric sclerae Neck: trachea midline, no thyromegaly Thyroid: normal thyroid Respiratory: normal respiratory effort, lungs clear to auscultation Cardiovascular: RRR, no murmur, no edema Vessels: posterior tibial pulses present and dorsalis pedis pulses present Extremities: normal capillary refill; no edema Gastrointestinal (Abdomen): normal bowel sounds, soft, nontender, no hepatosplenomegaly Musculoskeletal: Head/Neck/Chest: normocephalic and head atraumatic Minimal tenderness to palpation of the L hip. Dressings in place, no obvious bleeding or erythema noted. Skin: no rashes, warm and dry Neurologic: PERRL, EOMI, accommodation nl, no face palsy, no dysarthria Psychiatric: Orientation: alert, oriented to person, oriented to place and + guarded (initially guarded, then cooperative); + not oriented to time Eye Contact: good eye contact Lymphatic: no cervical lymphadenopathy Results & Data Results & Data ([facility]) Vital Signs (Past 12 Hours) Vital Signs Temp Pulse Resp BP BP Pulse Ox 12/29/20 15:39 36.9 C 79 16 151/67 H 95 12/29/20 15:14 36.9 C 85 18 153/66 H 95 Resident Activity Tracking Resident Involvement: Resident Care Provided Care Provided: Adult Hospital Medicine
[2020-12-29] MEDS: SENNA 8.6 MG TAB PO SCH (20:15)
[2020-12-29] MEDS: ATORVASTATIN 40 MG TAB PO SCH (20:16)
[2020-12-30] MEDS: KETOROLAC TROMETHAMINE 15 MG/ML VIAL IV SCH ×2 (05:45→12:39)
[2020-12-30] MEDS: ACETAMINOPHEN 500 MG TAB PO SCH ×3 (05:46→16:18)
--- NOTE | 2020-12-30 07:48 | Orthopedic Progress Note ---
Date of Service December 30, 2020 Assessment & Plan (1) Status post total hip replacement, left: Pain is controlled. Narcotics have been held. PT/OT dvt prophylaxis continue hip precautions. urinary retention and post op confusion: hospitalist was consulted. catheter was reinserted. She is very agitated this morning. Upset about the catheter and other things. She talked about getting a steward/stewardess third due to her situation here. Will discuss with Dr. Sood regarding discharge. She is adamant about going home today. Subjective . 75 year old POD #2 from left quintin. She said her hip has been okay and not really that painful. She is quite upset and agitated though about some of her treatment here. She apparently had some urinary retention and a catheter was inserted again. She is upset about having that and did not want it. She is also upset about being left laying in an uncomfortable position. She is adamant about going home today. Review of Systems All systems reviewed & are unremarkable except as noted in HPI & below. Physical Exam .alert and agitated today. Left leg: dressing intact to hip. Leg appears well aligned at this time. Able to dorsiflex and plantarflex. NVI Results & Data Results & Data Laboratory Results . Diagnostic Findings . PG Care Time/CCT Total # of Minutes Spent Total Time Spent with Patient: Total time spent is greater than 50% in coordination of care (as documented) at patient's floor/unit and/or counseling patient: Coding Level of Care Code 38010 Post Operative Follow-Up Diagnoses Status post total hip replacement, left Z96.642
--- NOTE | 2020-12-30 08:54 | Hospitalist Progress Note ---
Date of Service December 30, 2020 Assessment & Plan (1) Delirium: Mrs. Coats is a 75 year old female with a history of Hypertension, Dyslipidemia, Type 2 DM, PAC's, Major Depression, Anxiety, and Osteoarthritis s/p Left ASHLYN 12/28/20 complicated by post-op delirium/confusion. Yesterday, her confusion became worse and she was more forgetful unusual. Last evening, she was noted to have urinary retention -- therefore a Berumen catheter was inserted and at that point, patient became much more agitated and combative. This morning she was combative again earlier, but the nurses have done a great job of redirecting her and calming her down. Patient states that she is "doing well" today. She states that her hip pain is very well controlled. Patient remains confused and is not oriented to place. She is not combative at the present time. Delirium/Confusion most likely secondary to anesthesia, post-op state, opiates, strange surroundings. It appears to be improving, she is cooperating with PT personnel, nurses, and with myself. -- Opiate analgesics have been discontinued. -- Add Ativan 1 mg IV q 4 hours as needed for agitation/combativeness. -- Should be able to remove Berumen catheter after opiate/anesthesia clears her system. -- Nursing staff will continue to redirect and reorient in the meantime. (2) Status post total hip replacement, left: -- Pain is well controlled. -- Continue Toradol as needed. -- Post-op anemia, Hgb > 10 g/dl. Asymptomatic, no further intervention is needed. -- Continue various therapies. -- Educated on avoidance of certain hip positions. -- Patient refuses SNF or Rehab Hospital stay. -- Plan is to discharge home with [facility]. (3) Diabetes mellitus type II, controlled: -- Continue Lantus 30 u subcutaneously every day. -- Sliding scale insulin. -- Continue BSG checks. -- Diabetic diet. -- Resume Glimepiride 4 mg b.i.d. at discharge. -- Resume Actos 30 mg daily at discharge. (4) HTN (hypertension): -- Continue Losartan 100 mg daily. (5) Hyperlipidemia: -- Continue Atorvastatin 80 mg daily. (6) Depression: -- Continue Paxil 10 mg daily. Admission and Anticipated Discharge Date Admission Date: December 28, 2020 Subjective Mrs. Coats is a 75 year old female with a history of Hypertension, Dyslipidemia, Type 2 DM, PAC's, Major Depression, Anxiety, and Osteoarthritis s/p Left ASHLYN 12/28/20 complicated by post-op delirium/confusion. Yesterday, her confusion became worse and she was more forgetful unusual. Last evening, she was noted to have urinary retention -- therefore a Berumen catheter was inserted and at that point, patient became much more agitated and combative. This morning she was combative again earlier, but the nurses have done a great job of redirecting her and calming her down. I am currently seeing her in room 302. She is working with the physical therapist. Patient is ambulating with a walker. She states that she is "doing well" today. She states that her hip pain is very well controlled. Patient offers no other complaints. She denies any chest pain, heaviness, tightness, pressure. She denies any shortness of breath, dyspnea exertion, or any palpitat ions. She is eating and drinking without difficulty. She denies any abdominal pain or constipation. She had a bowel movement today. Patient remains confused. When I asked her where she is at, she does not know. When I reminded her she was at about [facility] -- she recognizes that she has been here only 2 times, and this is her 2nd stay. Review of Systems Review of Systems: All systems reviewed & are unremarkable except as noted in Subjective Physical Exam Physical Exam: GENERAL: Patient in no acute distress. HEENT: Head is atraumatic, normocephalic. EOM's intact. Facies symmetric. No perioral cyanosis. NECK: No JVD. JVP is not elevated. Carotid upstrokes are + 2 bilaterally. CHEST/LUNGS: Clear to auscultation throughout all lung bustos. No wheezes, rales, or crackles. CVS: S1 and S2 are regular with occasional ectopy. No obvious murmurs, gallops, or rubs. PMI is nonpalpable. No lifts, heaves, or thrills. No abdominal aortic or renal bruits. ABDOMINAL EXAM: Bowel sounds are present. No masses, organomegaly, or tenderness. EXTREMITIES: No clubbing or cyanosis. No edema, compression stockings in place. Intact radial pulses bilaterally. Left hip is dressed. NEUROLOGIC EXAM: Patient is awake, alert, and interactive. She is not combative currently. Answers questions appropriately. Speech is loud and clear. Gait pattern - patient ambulating with a wheeled walker. Not oriented to place. Results & Data Results & Data ([facility]) Vital Signs (Past 12 Hours) Vital Signs Temp Pulse Resp BP Pulse Ox 12/30/20 07:33 36.9 C 95 H 16 117/71 93 12/29/20 21:19 37.3 C 93 H 16 145/63 H 92 Laboratory Results Laboratory Results - last 24 hr 12/29/20 12/29/20 12/29/20 12:12 16:56 20:19 POC Glucose 94 95 106 H 12/30/20 08:01 POC Glucose 144 H Medications Administered Medications hydroxyzine HCl 10 mg tablet 10 mg PO HS PRN #30 tab 02/18/20 [Rx Confirmed 12/28/20] pen needle, diabetic 31 gauge x 5/16" #100 ea 02/18/20 [Rx Confirmed 11/18/20] 3-in-1 Commode #1 ea 02/27/20 [Rx Confirmed 11/18/20] Wheeled Walker #1 ea 02/27/20 [Rx Confirmed 11/18/20] atorvastatin 80 mg PO HS 03/02/20 [History Confirmed 12/28/20] hydrocortisone [Anusol-HC] 0.5 applic WA BID PRN 05/19/20 [History Confirmed 12/28/20] nystatin 1 applic TOPICAL HS PRN 05/19/20 [History Confirmed 12/28/20] pioglitazone [Actos] 30 mg PO QAM 05/19/20 [History Confirmed 12/28/20] losartan 100 mg tablet 100 mg PO QAM #90 tab 06/01/20 [Rx Confirmed 12/28/20] blood sugar diagnostic #400 ea 10/07/20 [Rx Confirmed 11/18/20] meloxicam 7.5 mg tablet 7.5 mg PO QAM #90 tab 10/12/20 [Rx Confirmed 12/28/20] paroxetine HCl 10 mg tablet 10 mg PO QAM #30 tab 11/30/20 [Rx Confirmed 12/28/20] glimepiride 4 mg tablet 4 mg PO BID #180 tab 12/22/20 [Rx Confirmed 12/28/20] insulin glargine [Lantus Solostar U-100 Insulin] 30 unit SQ HS 12/28/20 [History Confirmed 12/28/20] Home Medications Acetaminophen (Acetaminophen 500 Mg Tab) 1,000 mg PO Q8 YASMINE Stop: 01/27/21 13:59 Last Admin: 12/30/20 05:46 Dose: 1,000 mg Documented by: Al Hydrox/Mg Hydrox/Simethicone (Aluminum/Magnesium Susp 30 Ml Udc) 15 ml PO Q4H PRN PRN Reason: Heartburn Stop: 01/27/21 13:13 Ascorbic Acid (Ascorbic Acid 500 Mg Tab) 500 mg PO BIDM YASMINE Stop: 01/27/21 16:59 Last Admin: 12/30/20 08:58 Dose: 500 mg Documented by: Aspirin (Aspirin 81 Mg Ectab) 81 mg PO BID [facility] Stop: 01/27/21 20:59 Last Admin: 12/30/20 08:57 Dose: 81 mg Documented by: Atorvastatin Calcium (Atorvastatin 40 Mg Tab) 80 mg PO HS [facility] Stop: 01/27/21 20:59 Last Admin: 12/29/20 20:16 Dose: 80 mg Documented by: Bisacodyl (Bisacodyl 10 Mg Supp) 10 mg WA DAILY PRN PRN Reason: Constipation Stop: 01/27/21 13:13 Dextrose (Dextrose 50% 50 Ml Syringe) 25 - 50 ml IV UD PRN; Protocol PRN Reason: Hypoglycemia Protocol Stop: 01/27/21 13:13 Docusate Sodium (Docusate Sodium 100 Mg Cap) 100 mg PO BID [facility] Stop: 01/27/21 20:59 Last Admin: 12/30/20 08:57 Dose: 100 mg Documented by: Ferrous Gluconate (Ferrous Gluconate 324 Mg Tab) 324 mg PO BIDM YASMINE Stop: 01/27/21 16:59 Last Admin: 12/30/20 08:58 Dose: 324 mg Documented by: Glucagon (Glucagon For Inj 1 Mg Vial) 1 mg SQ UD PRN; Protocol PRN Reason: Hypoglycemia Protocol Stop: 01/27/21 13:13 Glucose (Glucose 10 Tabs/Tube) 4 - 8 tabs PO UD PRN; Protocol PRN Reason: Hypoglycemia Protocol Stop: 01/27/21 13:13 Glucose (Glucose 40% Gel 15 Gm Tube) 15 - 30 gm PO UD PRN; Protocol PRN Reason: Hypoglycemia Protocol Stop: 01/27/21 13:13 Hydrocortisone (Hydrocortisone Hc 2.5% Crm 30gm Tube) 0.5 appln EXT BID PRN PRN Reason: hemorroids Stop: 01/27/21 13:13 Hydromorphone HCl (Hydromorphone Inj 0.5 Mg/0.5 Ml Syr) 0.5 mg IV Q4H PRN PRN Reason: Pain or Pre PT Stop: 01/12/21 03:07 Hydroxyzine HCl (Hydroxyzine Hcl 10 Mg Tab) 10 mg PO HS PRN PRN Reason: sleep Stop: 01/28/21 03:07 Insulin Aspart (Insulin Aspart 100 Units/Ml 3 Ml Pen) 0 units SC [facility]; Protocol Stop: 01/27/21 16:29 Last Admin: 12/30/20 09:01 Dose: 2 units Documented by: Insulin Glargine (Insulin Glargine Solostar 100 Units/Ml 3 Ml Pen) 30 units SC HS [facility]; Protocol Stop: 01/29/21 20:59 Ketorolac Tromethamine (Ketorolac Tromethamine 15 Mg/Ml Vial) 15 mg IV Q6 YASMINE Stop: 12/30/20 12:01 Last Admin: 12/30/20 05:45 Dose: 15 mg Documented by: Losartan Potassium (Losartan Potassium 50 Mg Tab) 100 mg PO QAM [facility] Stop: 01/28/21 08:59 Last Admin: 12/30/20 08:58 Dose: 100 mg Documented by: Magnesium Hydroxide (Magnesium Hydroxide Susp 30 Ml Udc) 30 ml PO Q6H PRN PRN Reason: Constipation Stop: 01/27/21 13:13 Metoclopramide HCl (Metoclopramide Hcl Inj 5 Mg/Ml 2 Ml Vial) 10 mg IV Q6H PRN PRN Reason: Nausea And Vomiting Stop: 01/28/21 03:07 Miscellaneous (Carbohydrates For Hypoglycemia ) 15 - 30 gm PO UD PRN PRN Reason: Hypoglycemia Protocol Stop: 01/27/21 13:13 Miscellaneous Information (Pharmacy Glycemic Mgmt Consult) 1 ea N/A UD PRN PRN Reason: Consult Stop: 01/27/21 14:20 Multivitamins ([facility]ivitamin Tab) [facility] [place] [facility] [place]: 01/28/21 08:59 Last Admin: 12/30/20 08:58 Dose: 1 tab Documented by: Naloxone HCl (Naloxone Hcl 0.4 Mg/1 Ml Vial/Carp) 0.1 mg IV Q5M PRN PRN Reason: Oversedation/Resp Depression Stop: 01/27/21 13:13 Nystatin (Nystatin Cr 15 Gm Tube) 1 appln EXT HS PRN PRN Reason: Skin Irritation Stop: 01/27/21 13:13 Ondansetron HCl (Ondansetron Inj 2 Mg/Ml 2 Ml Vial) 4 mg IV Q6H PRN PRN Reason: Nausea And Vomiting Stop: 01/28/21 03:07 Paroxetine HCl (Paroxetine Hcl 10 Mg Tab) 10 mg PO QAM YASMINE Stop: 01/28/21 08:59 Last Admin: 12/30/20 08:58 Dose: 10 mg Documented by: Sennosides (Senna 8.6 Mg Tab) 17.2 mg PO HS YASMINE Stop: 01/27/21 20:59 Last Admin: 12/29/20 20:15 Dose: 17.2 mg Documented by: Tramadol HCl (Tramadol Hcl 50 Mg Tablet) 50 - 100 mg PO Q6H PRN PRN Reason: Pain & Pre PT Stop: 01/28/21 03:07 PG Care Time/CCT Total # of Minutes Spent Total Time Spent with Patient: Total time spent is greater than 50% in coordination of care (as documented) at patient's floor/unit and/or counseling patient:35 Coding Level of Care Code 21861 Subseq Hosp Care Lvl 3 Diagnoses Delirium R41.0 Status post total hip replacement, left Z96.642 Diabetes mellitus type II, controlled E11.9 HTN (hypertension) I10 Hyperlipidemia E78.5 Depression F32.9 Time Spent (min) 45
[2020-12-30] MEDS: ASPIRIN 81 MG ECTAB PO SCH (08:57)
[2020-12-30] MEDS: DOCUSATE SODIUM 100 MG CAP PO SCH (08:57)
[2020-12-30] MEDS: ASCORBIC ACID 500 MG TAB PO SCH (08:58)
[2020-12-30] MEDS: MULTIVITAMIN TAB PO SCH (08:58)
[2020-12-30] MEDS: PARoxetine HCL 10 MG TAB PO SCH (08:58)
[2020-12-30] MEDS: FERROUS GLUCONATE 324 MG TAB PO SCH (08:58)
[2020-12-30] MEDS: LOSARTAN POTASSIUM 50 MG TAB PO SCH (08:58)
[2020-12-30] MEDS ORDERED: INSULIN GLARGINE SOLOSTAR 100 UNITS/ML 3 ML PEN SC SCH ×2 (09:00→21:00)
[2020-12-30] MEDS: INSULIN ASPART 100 UNITS/ML 3 ML PEN SC SCH ×2 (09:01→12:38)
--- NOTE | 2021-01-01 00:06 | Billing Data ---
Date of Service January 01, 2021 Coding Level of Care Code 37308 Inpt Consult Level 3
--- NOTE | 2021-01-02 07:39 | Discharge Summary ---
Date of Service January 02, 2021 Discharge Data Consultations 12/29/20 18:47 Consult Hospitalist Routine Procedures Performed Operation Date: 06/02/20 07:00 <No data on this case meets the specified criteria> Operation Date: 12/28/20 09:20 Actual Procedures p Left Total Hip Arthroplasty--Cemented(Left) - Chin Sood MD Diabetes Follow Up Diabetes Follow Up: Diabetes Follow-up Needed for HgbA1c >9% Hospital Course (1) Status post total hip replacement, left: This patient is a 75 year old admitted on 12/28/20 and underwent total hip arthroplasty. She tolerated the procedure well and there were no complications. Transferred to the PACU post op and later to the orthopedic floor for further care. She was given ancef for antibiotic prophylaxis. She was also given SAMUEL stockings, SCDs, and aspirin for DVT prophylaxis. Hemoglobin, hematocrit, and vital signs were monitored during her hospital stay and remained stable. Did not require any blood transfusions. There were no complications during her hospital stay. She did have some post op delirium and was confused/agitated. Her benjamin catheter was reinserted due to urinary retention but was removed prior to discharge. The hospitalist service was consulted and followed her through out her hospital stay. By post op day #2 the patient was tolerating a diabetic diet, pain was reasonably controlled with oral pain medicine, and she was participating in physical therapy. On post op day #2 the patient was discharged home and set up with home health care. She was given printed discharge instructions including prescriptions for extra strength tylenol, aspirin, and tramadol. Continue physical therapy, weight bearing as tolerated. Continue hip precautions. Continue SAMUEL stockings. Follow up approximately 2 weeks post op or sooner if there are problems or concerns. Coding Level of Care Code None Diagnoses Status post total hip replacement, left Z96.642
== END 2020-12-30 18:08 | disposition home health service (06) ==
LOC: ASU 06:47 → 3E 06:47